=== PATIENT | male | born 1970 | race Caucasian/White ===

== ENCOUNTER 2017-08-21 16:11 | Observation (INO) ==
[2017-08-21] MEDS ORDERED: Aspirin 81 MG TAB.CHEW PO ONE (16:20)
[2017-08-21] MEDS ORDERED: *HR* Heparin 5,000 UNIT/ML VIAL IVP ONE (16:29)
[2017-08-21] MEDS ORDERED: *HR* Heparin 5,000 UNIT/ML VIAL IVP PRN ×2 (16:29)
[2017-08-21] MEDS ORDERED: Heparin 25,000 UNIT/500 ML D5W 25,000 UNIT/500 ML BAG IVC SCH (16:30)
--- NOTE | 2017-08-21 16:30 | Emergency Department Note ---
Disposition Clinical Impression: Chest pain Qualifiers: Chest pain type: other chest pain Qualified Code(s): R07.89 - Other chest pain ; R07.8 - Other chest pain Disposition: Admitted As Inpatient Condition: Fair Referrals: Morena Sanchez DO [Primary Care Provider] - Forms: ED Satisfaction Letter Chest Pain HPI - General Chief Complaint: ED Chest Pain Stated Complaint: CP Time Seen by Provider: 08/21/17 16:18 Vital Signs Reviewed: Yes Nursing Notes Reviewed: Yes - History of Present Illness HPI Narrative: 47-year-old male past medical history of hypertension, hyperlipidemia, coronary artery disease in father presents to the emergency department with concern for chest pain. Patient states chest pain started on the left side was sharp in nature, started while he was mowing grass today riding a lawnmower. States she has never had this feeling before. Denies any nausea or vomiting or diaphoresis with it. Denies any abdominal pain. No history of heart attacks. Severity scale (1-10): 7 - Related Data Home Medications Medication Instructions Recorded Confirmed Aspirin Enteric Coated [Aspirin EC] 81 mg PO DAILY 08/21/17 08/21/17 Atorvastatin [Lipitor] 40 mg PO HS 08/21/17 08/21/17 Metoprolol [Lopressor] 25 mg PO BID 08/21/17 08/21/17 SUMAtriptan succinate [Imitrex] 25 mg PO DAILY PRN 08/21/17 08/21/17 hydroCHLOROthiazide 12.5 mg PO DAILY 08/21/17 08/21/17 [Hydrochlorothiazide] metFORMIN [Glucophage] 500 mg PO BIDWM 08/21/17 08/21/17 Allergies Allergy/AdvReac Type Severity Reaction Status Date / Time No Known Allergies Allergy Verified 08/21/17 17:02 All systems ED: reviewed and negative except as stated. Review of Systems: As Per HPI Constitutional: Denies: fever Cardiovascular: Reports: chest pain. Denies: palpitations Respiratory: Denies: cough, dyspnea Gastrointestinal: Denies: abdominal pain, nausea, vomiting Musculoskeletal: Denies: back pain, neck pain Integumentary: Denies: rash Neurological: Denies: headache, weakness, numbness, paresthesias Endocrine: Denies: fatigue Chest Pain PMH - Past Medical History Medical history: Reports: cancer, hyperlipidemia, hypertension, other Psychiatric history: Reports: no psych history - Social History Smoking Status: Former smoker Alcohol use: Reports: none Drug use: Reports: none Physical Exam - General General appearance: alert, in no apparent distress - Head Head exam: atraumatic, normocephalic - Eye Eye exam: Present: EOMI. Absent: scleral icterus - ENT ENT exam: normal exam, normal oropharynx - Neck Neck exam: Present: full ROM, trachea midline - Chest Chest inspection: Present: normal inspection, symmetric chest wall rise, tenderness (To palpation on the left side) - Respiratory Respiratory exam: Present: normal lung sounds bilaterally. Absent: respiratory distress - Cardiovascular Cardiovascular exam: Present: regular rate, normal rhythm, normal heart sounds - Abdominal Exam Abdominal exam: Present: soft, Non-Tender. Absent: distention, guarding - Back Exam Back exam: Present: full ROM - Neurological Exam Neurological exam: Present: alert, oriented X3 - Psychiatric Psychiatric exam: Present: normal affect, normal mood - Skin Skin exam: Present: warm, dry, intact, normal color Course Vital Signs Temperature 98.1 F 08/21/17 16:16 Pulse Rate 89 08/21/17 16:16 Respiratory Rate 18 08/21/17 16:16 Blood Pressure 157/85 08/21/17 16:16 O2 Sat by Pulse Oximetry 98 08/21/17 16:16 Temperature 98.1 F 08/21/17 16:33 Pulse Rate 78 08/21/17 18:25 Respiratory Rate 12 08/21/17 18:25 Blood Pressure 124/89 08/21/17 18:25 O2 Sat by Pulse Oximetry 98 08/21/17 18:25 Oxygen Delivery Oxygen Delivery Nasal Cannula Chest Pain - [facility] Narrative Medical decision making narrative: 47-year-old male presents to the emergency department with concern for chest pain. EKG reveals ST segment depressions of half a millimeter in the inferior lateral leads. Patient was given 3 trials of nitro drip. Chest pain went down to a 6 with this. We started nitro drip and chest pain was out of 3 out of 10 with 5 mcg/m. 10 mcg/m may chest pain resolved completely. Patient was also given fentanyl for sepsis. Chest x-ray was within normal limits. Troponin was negative. We obtained a d-dimer as patient was tachycardic here and had oxygen saturation of 92 and 93%. D-dimer was within normal limits. Patient was given 2 L of oxygen via nasal cannula brought his oxygen up to 95% to 96%. Patient was admitted to the hospital. Started on heparin low-dose ACS protocol. I spoke was agreed to accept the patient. Spoke with family at bedside and they agreed as well. Patient's blood pressure has been tolerating nitroglycerin. Patient was also given a liter fluid. Chest X-Ray 08/21/17 16:20 IMPRESSION: No acute process. D/ / Lewis Curiel MD / Lewis Curiel MD Interpreting Provider: Lewis Curiel MD Vital Signs Temperature 98.1 F 08/21/17 16:16 Pulse Rate 89 08/21/17 16:16 Respiratory Rate 18 08/21/17 16:16 Blood Pressure 157/85 08/21/17 16:16 O2 Sat by Pulse Oximetry 98 08/21/17 16:16 Temperature 98.1 F 08/21/17 16:33 Pulse Rate 78 08/21/17 18:25 Respiratory Rate 12 08/21/17 18:25 Blood Pressure 124/89 08/21/17 18:25 O2 Sat by Pulse Oximetry 98 08/21/17 18:25 Oxygen Delivery Oxygen Delivery Nasal Cannula - Lab Data Result diagrams: 08/21/17 16:38 08/21/17 16:30 Lab Results 08/21/17 08/21/17 08/21/17 Range/Units 16:20 16:30 16:38 WBC (4.3-11.1) K/mcL RBC (4.19-5.50) M/mcL Hgb (12.9-16.9) g/dL Hct (37.5-50.1) % MCV (83.0-100.0) fL MCH (28.0-33.3) pg MCHC (31.6-35.5) g/dL RDW (11.5-14.5) % Plt Count (140-400) K/mcL MPV (9.4-12.4) fL Immature Gran % (0-4) % Seg Neutrophils % % Lymphocytes % % Monocytes % % Eosinophils % % Basophils % % Neutrophils # (1.6-8.9) K/mcL Lymphocytes # (0.6-4.6) K/mcL Monocytes # (0.0-1.3) K/mcL Eosinophils # (0.0-0.6) K/mcL Basophils # (0.0-0.2) K/mcL PT 10.4 (9.4-12.1) Seconds INR 1.0 APTT 35.4 (26.0-36.0) Seconds D-Dimer 321 (0-500) ng/mLFEU Sodium 140 (136-145) mEq/L Potassium 3.6 (3.5-5.1) mEq/L Chloride 103 (98-107) mEq/L Carbon Dioxide 25 (23-29) mEq/L BUN 18 (6-20) mg/dL Creatinine 0.92 (0.70-1.30) mg/dL Est GFR ( Amer) > 60 (> 60) Est GFR (Non-Af Amer) > 60 (> 60) BUN/Creatinine Ratio 20 (6-26) Glucose 157 H (70-105) mg/dL Calculated Osmolality 295 (280-300) Calcium 9.9 (8.6-10.3) mg/dL Troponin I < 0.03 (< 0.04) ng/mL B-Natriuretic Peptide 9 (Less than 100) pg/mL 08/21/17 Range/Units 16:38 WBC 7.4 (4.3-11.1) K/mcL RBC 5.89 H (4.19-5.50) M/mcL Hgb 17.6 H (12.9-16.9) g/dL Hct 51.1 H (37.5-50.1) % MCV 86.8 (83.0-100.0) fL MCH 29.9 (28.0-33.3) pg MCHC 34.4 (31.6-35.5) g/dL RDW 11.9 (11.5-14.5) % Plt Count 207 (140-400) K/mcL MPV 10.4 (9.4-12.4) fL Immature Gran % 0.4 (0-4) % Seg Neutrophils % 69.1 % Lymphocytes % 22.2 % Monocytes % 6.5 % Eosinophils % 1.5 % Basophils % 0.3 % Neutrophils # 5.1 (1.6-8.9) K/mcL Lymphocytes # 1.6 (0.6-4.6) K/mcL Monocytes # 0.5 (0.0-1.3) K/mcL Eosinophils # 0.1 (0.0-0.6) K/mcL Basophils # 0.0 (0.0-0.2) K/mcL PT (9.4-12.1) Seconds INR APTT (26.0-36.0) Seconds D-Dimer (0-500) ng/mLFEU Sodium (136-145) mEq/L Potassium (3.5-5.1) mEq/L Chloride (98-107) mEq/L Carbon Dioxide (23-29) mEq/L BUN (6-20) mg/dL Creatinine (0.70-1.30) mg/dL Est GFR ( Amer) (> 60) Est GFR (Non-Af Amer) (> 60) BUN/Creatinine Ratio (6-26) Glucose (70-105) mg/dL Calculated Osmolality (280-300) Calcium (8.6-10.3) mg/dL Troponin I (< 0.04) ng/mL B-Natriuretic Peptide (Less than 100) pg/mL - EKG Data EKG attestation: Yes I reviewed and interpreted this EKG. EKG results narrative: 16:50 Ventricular rate 95 bpm, IA interval 140 ms, QRS duration 91 ms, QT 331 ms, QTC 384 ms, normal axis. Sinus rhythm with a ventricular rate of 95 bpm. There are no new ST segment depressions in the inferior and lateral leads. This is done with a previous comparison to an electrocardiogram performed in 02/13/2016. EKG #2 performed at 16:54 Ventricular rate 97 bpm, appearing to 137 ms, QRS duration 93 ms, QT 329 ms, QTC 383 ms, normal axis. Sinus rhythm with a ventricular rate of 97 bpm. EKG changes reported on previous electrocardiogram are the same. No changes. Heart Score - Score History: Moderately Suspicious EKG: Significant ST-Depression Age: 45-65 Risk Factors: 1-2 risk factors Troponin: Less than normal limit HEART Score Total: 5
[2017-08-21] MEDS: Nitroglycerin 0.4 MG TAB.SUBL SL PRN ×2 (16:39→16:55)
[2017-08-21 16:59] LABS: Basophils % 0.3 %; Eosinophils # 0.1 K/mcL (0.0-0.6); Eosinophils % 1.5 %; Hematocrit 51.1 % (37.5-50.1); Hemoglobin 17.6 g/dL (12.9-16.9); Immature Granulocytes % 0.4 % (0-4); Lymphocytes # 1.6 K/mcL (0.6-4.6); Lymphocytes % 22.2 %; Mean Corpuscular HGB Conc 34.4 g/dL (31.6-35.5); Mean Corpuscular Hemoglobin 29.9 pg (28.0-33.3); Mean Corpuscular Volume 86.8 fL (83.0-100.0); Mean Platelet Volume 10.4 fL (9.4-12.4); Monocytes # 0.5 K/mcL (0.0-1.3); Monocytes % 6.5 %; Neutrophils # 5.1 K/mcL (1.6-8.9); Platelet Count 207 K/mcL (140-400); Red Blood Count 5.89 M/mcL (4.19-5.50); Red Cell Distribution Width 11.9 % (11.5-14.5); Segmented Neutrophils % 69.1 %
[2017-08-21 17:03] LABS: Prothrombin Time 10.4 Seconds (9.4-12.1)
[2017-08-21 17:06] LABS: Activated Partial Thrombo Time 35.4 Seconds (26.0-36.0)
[2017-08-21 17:16] LABS: Troponin I < 0.03 ng/mL (< 0.04)
[2017-08-21] MEDS ORDERED: 0.9 % Sodium Chloride 1,000 ML IVC ONE (17:17)
[2017-08-21 17:27] LABS: BUN/Creatinine Ratio 20 (6-26); Blood Urea Nitrogen 18 mg/dL (6-20); Calcium 9.9 mg/dL (8.6-10.3); Carbon Dioxide 25 mEq/L (23-29); Chloride 103 mEq/L (98-107); Glucose 157 mg/dL (70-105); Osmolality,Calculated 295 (280-300); Potassium 3.6 mEq/L (3.5-5.1); Sodium 140 mEq/L (136-145); eGFR For African Americans > 60 (> 60); eGFR For Non-African Americans > 60 (> 60)
[2017-08-21] MEDS ORDERED: Nitroglycerin 25 MG/250 ML INFUS..BTL IVC SCH (17:30)
[2017-08-21] MEDS ORDERED: *HR* FentaNYL (PF) 100 MCG/2 ML VIAL IVP ONE (18:14)
--- NOTE | 2017-08-21 18:59 | Emergency Department Note ---
Disposition Clinical Impression: Chest pain Qualifiers: Chest pain type: other chest pain Qualified Code(s): R07.89 - Other chest pain Disposition: Admitted As Inpatient Condition: Fair General Adult HPI - General Chief complaint: ED Chest Pain Stated complaint: CP Time Seen by Provider: 08/21/17 16:18 Source: patient, family Limitations: no limitations - History of Present Illness Pain Scale: 7 - Related Data Home Medications Medication Instructions Recorded Confirmed Aspirin Enteric Coated [Aspirin EC] 81 mg PO DAILY 08/21/17 08/21/17 Atorvastatin [Lipitor] 40 mg PO HS 08/21/17 08/21/17 Metoprolol [Lopressor] 25 mg PO BID 08/21/17 08/21/17 SUMAtriptan succinate [Imitrex] 25 mg PO DAILY PRN 08/21/17 08/21/17 hydroCHLOROthiazide 12.5 mg PO DAILY 08/21/17 08/21/17 [Hydrochlorothiazide] metFORMIN [Glucophage] 500 mg PO BIDWM 08/21/17 08/21/17 Allergies Allergy/AdvReac Type Severity Reaction Status Date / Time No Known Allergies Allergy Verified 08/21/17 17:02 Constitutional: Denies: fever Cardiovascular: Reports: chest pain. Denies: palpitations Respiratory: Denies: cough, dyspnea Gastrointestinal: Denies: abdominal pain, nausea, vomiting Musculoskeletal: Denies: back pain, neck pain Integumentary: Denies: rash Neurological: Denies: headache, weakness, numbness, paresthesias Endocrine: Denies: fatigue Past Medical History - Past Medical History Medical history: Reports: cancer, hyperlipidemia, hypertension, other Psychiatric history: Reports: no psych history - Social History Smoking Status: Former smoker Smokeless Tobacco Status: No Alcohol use: Reports: none Drug use: Reports: none Physical Exam - General Limitations: no limitations General appearance: alert, in no apparent distress Course Vital Signs Temperature 98.1 F 08/21/17 16:16 Pulse Rate 89 08/21/17 16:16 Respiratory Rate 18 08/21/17 16:16 Blood Pressure 157/85 08/21/17 16:16 O2 Sat by Pulse Oximetry 98 08/21/17 16:16 Temperature 98.1 F 08/21/17 16:33 Pulse Rate 80 08/21/17 18:59 Respiratory Rate 21 08/21/17 20:03 Blood Pressure 115/87 08/21/17 20:03 O2 Sat by Pulse Oximetry 94 08/21/17 18:59 Oxygen Delivery Oxygen Delivery Nasal Cannula Medical Decision Making - Lab Data Result diagrams: 08/21/17 16:38 08/21/17 16:30 Lab Results 08/21/17 08/21/17 08/21/17 Range/Units 16:20 16:30 16:38 WBC (4.3-11.1) K/mcL RBC (4.19-5.50) M/mcL Hgb (12.9-16.9) g/dL Hct (37.5-50.1) % MCV (83.0-100.0) fL MCH (28.0-33.3) pg MCHC (31.6-35.5) g/dL RDW (11.5-14.5) % Plt Count (140-400) K/mcL MPV (9.4-12.4) fL Immature Gran % (0-4) % Seg Neutrophils % % Lymphocytes % % Monocytes % % Eosinophils % % Basophils % % Neutrophils # (1.6-8.9) K/mcL Lymphocytes # (0.6-4.6) K/mcL Monocytes # (0.0-1.3) K/mcL Eosinophils # (0.0-0.6) K/mcL Basophils # (0.0-0.2) K/mcL PT 10.4 (9.4-12.1) Seconds INR 1.0 APTT 35.4 (26.0-36.0) Seconds D-Dimer 321 (0-500) ng/mLFEU Sodium 140 (136-145) mEq/L Potassium 3.6 (3.5-5.1) mEq/L Chloride 103 (98-107) mEq/L Carbon Dioxide 25 (23-29) mEq/L BUN 18 (6-20) mg/dL Creatinine 0.92 (0.70-1.30) mg/dL Est GFR ( Amer) > 60 (> 60) Est GFR (Non-Af Amer) > 60 (> 60) BUN/Creatinine Ratio 20 (6-26) Glucose 157 H (70-105) mg/dL Calculated Osmolality 295 (280-300) Calcium 9.9 (8.6-10.3) mg/dL Troponin I < 0.03 (< 0.04) ng/mL B-Natriuretic Peptide 9 (Less than 100) pg/mL 08/21/17 Range/Units 16:38 WBC 7.4 (4.3-11.1) K/mcL RBC 5.89 H (4.19-5.50) M/mcL Hgb 17.6 H (12.9-16.9) g/dL Hct 51.1 H (37.5-50.1) % MCV 86.8 (83.0-100.0) fL MCH 29.9 (28.0-33.3) pg MCHC 34.4 (31.6-35.5) g/dL RDW 11.9 (11.5-14.5) % Plt Count 207 (140-400) K/mcL MPV 10.4 (9.4-12.4) fL Immature Gran % 0.4 (0-4) % Seg Neutrophils % 69.1 % Lymphocytes % 22.2 % Monocytes % 6.5 % Eosinophils % 1.5 % Basophils % 0.3 % Neutrophils # 5.1 (1.6-8.9) K/mcL Lymphocytes # 1.6 (0.6-4.6) K/mcL Monocytes # 0.5 (0.0-1.3) K/mcL Eosinophils # 0.1 (0.0-0.6) K/mcL Basophils # 0.0 (0.0-0.2) K/mcL PT (9.4-12.1) Seconds INR APTT (26.0-36.0) Seconds D-Dimer (0-500) ng/mLFEU Sodium (136-145) mEq/L Potassium (3.5-5.1) mEq/L Chloride (98-107) mEq/L Carbon Dioxide (23-29) mEq/L BUN (6-20) mg/dL Creatinine (0.70-1.30) mg/dL Est GFR ( Amer) (> 60) Est GFR (Non-Af Amer) (> 60) BUN/Creatinine Ratio (6-26) Glucose (70-105) mg/dL Calculated Osmolality (280-300) Calcium (8.6-10.3) mg/dL Troponin I (< 0.04) ng/mL B-Natriuretic Peptide (Less than 100) pg/mL Attestation Statement - Attestation Attestation: I examined this patient and my medical decision-making was reviewed with the Resident Physician, Dr. Salter. I agree with the documented findings, disposition and treatment plan as described except to the extent set forth below. Patient is a 39-year-old white male who presents to the emergency Department with complaints of left-sided chest pain that began this afternoon while on his riding lawnmower. Patient states the pain is nonradiating about 7 out of 10 in severity with no other associated symptoms. Patient had no lightheadedness or syncope. No migratory pain. Patient has a history of hyperlipidemia, hypertension and known CAD. I agree with patient's physical exam findings as documented. Vital signs are stable on arrival. His initial EKG shows normal sinus rhythm with T-wave inversion in the inferolateral leads that are new compared to a prior EKG. Was administered aspirin and a nitroglycerin trial which brought his pain from a 7 down to a 2. We initiated a nitro drip titrated up to 10 mics with resolution of pain. Patient's lab evaluation is unremarkable including a negative troponin chest x- ray was within normal limits. Patient will be admitted to the hospitalist service for further evaluation of unstable angina.
[2017-08-21] MEDS ORDERED: Naloxone 0.4 MG/ML INJ IVP PRN (19:14)
[2017-08-21] MEDS ORDERED: Dextrose Gel 15 GM/37.5 ML TUBE PO PRN ×2 (19:14)
[2017-08-21] MEDS ORDERED: D5% in Water 1,000 ML IVC PRN (19:14)
[2017-08-21] MEDS ORDERED: *HR* Dextrose 50 % in Water (Syg) 50 ML SYRINGE IVP PRN (19:14)
--- NOTE | 2017-08-21 19:21 | Internal Med History&Physical ---
Date of Encounter: 08/21/17 Time of Encounter: 19:17 Internal Medicine - H&P: HPI Chief complaint: chest pain History of present illness: Mr. Munoz is a 47 year old male who presents with chest pain evaluation admitted for observation. He has a risk factor of type 2 diabetes, history of 34 years smoking at a rate of 2 pack per day but quit 4 months ago, hypertension, hyperlipidemia, family history of heart disease in father and both grandparents. 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 However at 10 AM today he was cutting grass on the ride on garageman when he experienced a sharp sternal in location chest pain, radiating to the left chest, 7 out of 10, pleuritic in quality that is markedly worse on breathing. In the ED he was given nitroglycerin, heparin and aspirin , with significant relief with pain 0 out of 10 on evaluation at bedside. EKG personally reviewed with rate of 97, nonspecific ST-T changes. FINDINGS: The lungs are without acute focal process. There is no effusion or pneumothorax. The cardiomediastinal silhouette is stable. The osseous structures are stable. XR/XR chest 1V portable IMPRESSION: No acute process. Past Med Surg Social Fam HX - Past Medical History Medical history: cancer, hyperlipidemia, hypertension, other Additional medical history: Bladder Psychiatric history: no psych history - Past Surgical History Additional surgical history: left wrist surgery. 3 bladder surgeries - Social History Smoking Status: Former smoker Smokeless Tobacco Status: No Alcohol use: none Drug use: none Internal Medicine - H&P: Meds Aspirin Enteric Coated [Aspirin EC] 81 mg PO DAILY 08/21/17 [History] Atorvastatin [Lipitor] 40 mg PO HS 08/21/17 [History] Metoprolol [Lopressor] 25 mg PO BID 08/21/17 [History] SUMAtriptan succinate [Imitrex] 25 mg PO DAILY PRN 08/21/17 [History] hydroCHLOROthiazide [Hydrochlorothiazide] 12.5 mg PO DAILY 08/21/17 [History] metFORMIN [Glucophage] 500 mg PO BIDWM 08/21/17 [History] 3 Allergy/AdvReac Type Severity Reaction Status Date / Time No Known Allergies Allergy Verified 08/21/17 17:02 All Systems PM: A 10-system review of systems was performed and is negative for pertinent findings except as documented above in the HPI. Review of systems: ROS 14 point review of systems reviewed as best as possible given presentation. Pertinent positive or negative as per HPI or otherwise reviewed as negative - Constitutional Vitals: Temp Pulse Resp BP Pulse Ox 98.1 F 80 16 107/61 94 08/21/17 16:33 08/21/17 18:59 08/21/17 18:59 08/21/17 18:59 08/21/17 18:59 Exam: General - AAO x 3 Psych - Appropriate affect/speech. No agitation Eyes - TATUM. Eye lids intact. No scleral icterus Neuro - No gross peripheral or central neuro deficits on inspection Heart - Sinus. RRR. S1 and S2 present. No added HS/murmurs appreciated. No elevated JVD appreciated. Lung - Adequate air entry b/l, No crackles/wheezes appreciated GI - Soft, non-tender. No hepatosplenomegaly/ascites. BS+ - No CVA/suprapubic tenderness or palpable bladder distension Skin - Intact. No rash/petechiae/ecchymosis. Warm extremities MSK - Joints with normal ROM. No joint swellings Internal Med - H&P Results - Labs CBC & Chem 7: 08/21/17 16:38 08/21/17 16:30 Labs: Short CBC 08/21/17 Range/Units 16:38 WBC 7.4 (4.3-11.1) K/mcL Hgb 17.6 H (12.9-16.9) g/dL Hct 51.1 H (37.5-50.1) % Plt Count 207 (140-400) K/mcL Neutrophils # 5.1 (1.6-8.9) K/mcL BMP 08/21/17 16:30 Sodium 140 Potassium 3.6 Chloride 103 Carbon Dioxide 25 BUN 18 Creatinine 0.92 Glucose 157 H Calcium 9.9 Cardiac Enzymes 08/21/17 Range/Units 16:30 Troponin I < 0.03 (< 0.04) ng/mL - Impressions ITS Impressions Chest X-Ray 08/21/17 16:20 IMPRESSION: No acute process. D/ / Lewis Curiel MD / Lewis Curiel MD Interpreting Provider: Lewis Curiel MD - Assessment and plan (1) Chest pain Current Visit: Yes Status: Acute Assessment and plan: Was started on nitroglycerin and heparin drip the ER. Confirmed that he has received aspirin. We will continue this overnight while trending troponin and monitoring telemetry. 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 If pain persisted and an with further biochemical changes, would consider consult to cardiology to assist with plan of care To entertain an alternate diagnosis of PE given his pleuritic chest pain, he does not manifest lower extremity swelling and has a normal d-dimer which is sensitive predictive tool Nevertheless given his presentation he will require observation in the hospital. Further management pending clinical course and testing. Qualifiers: Chest pain type: other chest pain Qualified Code(s): R07.89 - Other chest pain; R07.8 - Other chest pain (2) DMII (diabetes mellitus, type 2) Current Visit: Yes Status: Acute Assessment and plan: Insulin sliding scale for now. 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 Diabetes mellitus complication status: without complication Qualified Code(s): E11.9 - Type 2 diabetes mellitus without complications (3) HTN (hypertension) Current Visit: Yes Status: Acute Assessment and plan: continue bP med Qualifiers: Hypertension type: essential hypertension Qualified Code(s): I10 - Essential (primary) hypertension (4) HLD (hyperlipidemia) Current Visit: Yes Status: Acute Assessment and plan: continue statin Qualifiers: Hyperlipidemia type: mixed hyperlipidemia Qualified Code(s): E78.2 - Mixed hyperlipidemia (5) Polycythemia Current Visit: Yes Status: Acute Assessment and plan: outpatient investigation of etiology - Time Spent With Patient Total time spent is greater than 50% in coordination of care (as documented) at patient's floor/unit and/or counseling patient:
[2017-08-21] MEDS ORDERED: Insulin LISPRO 300 UNITS/3 ML VIAL SQ SCH (21:00)
[2017-08-21] MEDS ORDERED: Acetaminophen 325 MG TABLET PO PRN (22:12)
[2017-08-21] MEDS: Insulin LISPRO 300 UNITS/3 ML VIAL SQ SCH (22:21)
[2017-08-22] MEDS: Insulin LISPRO 300 UNITS/3 ML VIAL SQ SCH ×2 (08:37→12:23)
[2017-08-22] MEDS ORDERED: hydroCHLOROthiazide 25 MG TABLET PO SCH (09:00)
[2017-08-22] MEDS ORDERED: Aspirin Enteric Coated 81 MG Tablet PO SCH (09:00)
[2017-08-22 11:10] VITALS: BP 138/77
[2017-08-22] MEDS ORDERED: Regadenoson 0.4 MG/5 ML SYRINGE IVP ONE (11:16)
--- NOTE | 2017-08-22 14:18 | Discharge Summary ---
- NOTES TO OUTPATIENT PROVIDER Notes to Outpatient Provider: Recommend routine hospital follow-up Orders not resulted at time of discharge: Pending orders 08/22/17 10:48 NM ismael perf SPECT multi [NM] Routine Date of Encounter: 08/22/17 Time of Encounter: 14:18 - Discharge Diagnosis (1) Chest pain Priority: Primary Status: Acute Assessment and Plan: Presented with chest pain. Nitroglycerin and heparin gtt started in ED. Received ASA in ED. Serial troponins negative. No acute EKG changes. Nuclear medicine stress test perfusion imaging was negative for ischemia or infarct. D- dimer negative (low probability per Wells score). 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 Chest pain resolved at time of discharge. No further cardiac workup indicated at this time. Advised to return to ER if chest pain/SOB recurs Qualifiers: Chest pain type: other chest pain Qualified Code(s): R07.89 - Other chest pain; R07.8 - Other chest pain (2) DMII (diabetes mellitus, type 2) Priority: Primary Status: Acute Assessment and Plan: per hx. Cont home diabetes medication regimen Qualifiers: Diabetes mellitus mcfp insulin use: without long distance operator use Diabetes mellitus complication status: without complication Qualified Code(s): E11.9 - Type 2 diabetes mellitus without complications (3) HTN (hypertension) Priority: Primary Status: Acute Assessment and Plan: BP controlled. Cont home BP medication Qualifiers: Hypertension type: essential hypertension Qualified Code(s): I10 - Essential (primary) hypertension (4) HLD (hyperlipidemia) Priority: Primary Status: Acute Assessment and Plan: continue statin Qualifiers: Hyperlipidemia type: mixed hyperlipidemia Qualified Code(s): E78.2 - Mixed hyperlipidemia (5) Polycythemia Priority: Primary Status: Acute Assessment and Plan: outpatient investigation of etiology Hospital course: Please see assessment and plan for Hospital course Discharge discussed with: patient (Seen and examined at bedside. Patient is new to me, information obtained from chart review and patient report. As he feels better, no chest pain or shortness of breath. Would like to go home today if possible.) - Time Spent with Patient Total time spent providing and/or coordinating discharge services: - Discharge Medications Home Medications: Aspirin Enteric Coated [Aspirin EC] 81 mg PO DAILY 08/21/17 [History] Atorvastatin [Lipitor] 40 mg PO HS 08/21/17 [History] Metoprolol [Lopressor] 25 mg PO BID 08/21/17 [History] SUMAtriptan succinate [Imitrex] 25 mg PO DAILY PRN 08/21/17 [History] hydroCHLOROthiazide [Hydrochlorothiazide] 12.5 mg PO DAILY 08/21/17 [History] metFORMIN [Glucophage] 500 mg PO BIDWM 08/21/17 [History] Allergies/Adverse Reactions: 3 Allergy/AdvReac Type Severity Reaction Status Date / Time No Known Allergies Allergy Verified 08/21/17 17:02 Date of admission: 08/21/17 19:28 Primary care physician: Morena Sanchez DO Discharging clinician: Krystal Hoskins Anticipated date of discharge: 08/22/17 - Constitutional Vitals: Temp Pulse Resp BP Pulse Ox 97.6 F 70 20 138/77 98 08/22/17 11:09 08/22/17 11:09 08/22/17 11:09 08/22/17 11:09 08/22/17 11:09 General appearance: Present: A&O X 3, no acute distress - Head Head exam: Present: atraumatic, normocephalic - Eye Eye exam: Present: PERRL, conjuntiva pink, sclera anicteric Pupils: Present: PERRL - Neck Neck exam general surgery: Present: supple, trachea midline. Absent: lymphadenopathy - Respiratory Respiratory exam: Present: CTAB. Absent: accessory muscle use, rales, rhonchi, wheezes - Cardiovascular Cardiovascular exam: Present: RRR, +S1, +S2. Absent: diastolic murmur, gallop, rubs, systolic murmur - GI/Abdominal GI/Abdominal exam: Present: normal bowel sounds, soft, no peritoneal signs. Absent: distended, tenderness - Extremities Exam Extremities exam: Present: warm, radial pulses palpable and symmetrical. Absent : calf tenderness, cyanotic, pedal edema - Neurological Exam Neurological exam: Present: CN II-XII intact, oriented X3, no focal deficits. Absent: pronater drift, facial droop, speech deficit - Skin Skin exam: Present: dry, intact - Patient Status Disposition: Home, Self-Care Condition: Good Functional capacity at discharge: independent ambulation Overall status at discharge: patient is back to baseline - Discharge Instructions Instructions: Chest Pain (DC) Follow Up With: Morena Sanchez DO [Primary Care Provider] - (Please call for follow-up appointment within 1-2 weeks) - Diet and Activity Activity: increase activity as tolerated Diet: low fat, low cholesterol
--- NOTE | 2017-08-25 20:33 | Electrocardiograph Report ---
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
--- NOTE | 2017-08-25 20:35 | Electrocardiograph Report ---
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
== END 2017-08-22 15:40 | disposition home or self-care (01) ==
LOC: EMEROO 16:11 → 3BNU 16:11
PROVIDERS: ADMIT Family Medicine; ATTEND Family Medicine

== ENCOUNTER 2019-07-06 05:57 | Observation (INO) ==
[2019-07-06] MEDS ORDERED: Aspirin 81 MG TAB.CHEW PO ONE (06:03)
[2019-07-06] MEDS ORDERED: Isovue-370 500 ML BOTTLE IVP ONE (06:08)
[2019-07-06] MEDS ORDERED: *HR* FentaNYL (PF) 100 MCG/2 ML VIAL IVP ONE (06:09)
[2019-07-06] MEDS ORDERED: 0.9 % Sodium Chloride 1,000 ML IVC ONE (06:09)
[2019-07-06 06:20] LABS: Basophils % 0.7 %; Eosinophils # 0.1 K/mcL (0.0-0.6); Hematocrit 50.7 % (37.5-50.1); Hemoglobin 16.9 g/dL (12.9-16.9); Immature Granulocytes % 0.5 % (0-4); Lymphocytes # 1.4 K/mcL (0.6-4.6); Lymphocytes % 25.1 %; Mean Corpuscular HGB Conc 33.3 g/dL (31.6-35.5); Mean Corpuscular Hemoglobin 29.4 pg (28.0-33.3); Mean Corpuscular Volume 88.2 fL (83.0-100.0); Monocytes # 0.5 K/mcL (0.0-1.3); Monocytes % 9.4 %; Neutrophils # 3.5 K/mcL (1.6-8.9); Platelet Count 198 K/mcL (140-400); Red Blood Count 5.75 M/mcL (4.19-5.50); Red Cell Distribution Width 11.9 % (11.5-14.5); Segmented Neutrophils % 62.3 %; White Blood Count 5.5 K/mcL (4.3-11.1)
[2019-07-06 06:27] LABS: INR 0.8; Prothrombin Time 9.4 Seconds (9.4-12.1)
[2019-07-06 06:29] LABS: Activated Partial Thrombo Time 33.2 Seconds (26.0-36.0)
[2019-07-06 06:43] LABS: Alanine Aminotransferase 29 Units/L (7-52); Albumin 4.4 g/dL (3.5-5.7); Albumin/Globulin Ratio 1.9 (1.1-2.2); Alkaline Phosphatase 88 Units/L (34-104); Aspartate Amino Transferase 16 Units/L (13-39); BUN/Creatinine Ratio 15 (6-26); Bilirubin,Direct 0.1 mg/dL (0.0-0.2); Bilirubin,Indirect 0.2 mg/dL (0.0-1.0); Bilirubin,Total 0.3 mg/dL (0.3-1.0); Blood Urea Nitrogen 13 mg/dL (6-20); Calcium 9.3 mg/dL (8.6-10.3); Carbon Dioxide 25 mEq/L (23-29); Chloride 100 mEq/L (98-107); Globulin 2.3 g/dL (2.4-3.5); Glucose 312 mg/dL (70-105); Lipase 14 Units/L (11-82); Osmolality,Calculated 296 (280-300); Potassium 4.3 mEq/L (3.5-5.1); Sodium 137 mEq/L (136-145); Total Protein 6.7 g/dL (6.4-8.9); Troponin I < 0.03 ng/mL (< 0.04); eGFR For African Americans > 60 (> 60); eGFR For Non-African Americans > 60 (> 60)
[2019-07-06] MEDS ORDERED: GI Cocktail 40 ML EACH PO ONE (07:07)
[2019-07-06] MEDS: Nitroglycerin 0.4 MG TAB.SUBL SL STA ×3 (07:25→07:46)
[2019-07-06] MEDS ORDERED: Naloxone 0.4 MG/ML INJ IVP PRN (08:49)
[2019-07-06] MEDS ORDERED: Ondansetron 4 MG/2 ML VIAL IVP PRN (08:49)
[2019-07-06] MEDS ORDERED: Aspirin Enteric Coated 81 MG Tablet PO SCH (09:00)
[2019-07-06] MEDS ORDERED: D5% in Water 1,000 ML IVC PRN (09:30)
[2019-07-06] MEDS ORDERED: *HR* Dextrose 50 % in Water (Syg) 50 ML SYRINGE IVP PRN (09:30)
[2019-07-06] MEDS ORDERED: Dextrose Gel 15 GM/37.5 ML TUBE PO PRN ×2 (09:30)
[2019-07-06 09:38] VITALS: BP 135/91
[2019-07-06] MEDS ORDERED: Insulin LISPRO 300 UNITS/3 ML VIAL SQ SCH (12:00)
[2019-07-06] MEDS ORDERED: *HR* Heparin 5,000 UNIT/ML VIAL SQ SCH (18:00)
== END 2019-07-06 10:20 | disposition left against medical advice (07) ==
LOC: EMEROOARM 05:57 → 3BNU 05:57
PROVIDERS: ADMIT Internal Medicine; ATTEND Internal Medicine